=== PATIENT | male | born 1975 | race American Indian/Alaskan Native ===

== ENCOUNTER 2017-04-20 15:00 | Emergency (ER) | payer SELFPAY ==
[~2017-04-20] VITALS: Wt 81.8 kg
--- NOTE | 2017-04-20 18:41 | ERD ---
ER Documentation Chief Complaint Date/Time DATE: 04/20/17 TIME: 18:37 Chief Complaint rolled r. ankle and hit back of head on pole, no ko HPI This a 41-year-old male who presents to the emergency department today after being brought in by ambulance after rolling his ankle and hitting the back of his head on a fence. Patient states he was out in the yard doing some work when he was wearing crocs and stepped in a hole. States he sprained his ankle multiple times playing basketball. States that he felt the days but denies any loss of consciousness or nausea or vomiting. Denies any fevers or chills. ROS All systems reviewed and are negative except as per history of present illness. Allergies Allergies: Coded Allergies: No Known Allergy (Unverified , 04/20/17) PMhx/Soc Medical and Surgical Hx: pt denies Medical Hx History of Surgery: Yes (R ankle surgery.) Hx Alcohol Use: Yes Hx Substance Use: No Hx Tobacco Use: No Smoking Status: Never smoker Physical Exam Vitals Vital Signs Date Time Temp Pulse Resp B/P Pulse Ox O2 Delivery O2 Flow Rate FiO2 04/20/17 15:09 98.0 71 20 109/62 97 Physical Exam Const: Talkative, no acute distress Head: Atraumatic Eyes: Normal Conjunctiva. PERRLA. EOM intact ENT: Normal External Ears, Nose and Mouth. Neck: Full range of motion..~ No meningismus. Resp: Clear to auscultation bilaterally Cardio: Regular rate and rhythm, no murmurs Abd: Soft, non tender, non distended. Normal bowel sounds Skin: No petechiae or rashes Back: No midline or flank tenderness Ext: Right ankle with no obvious deformity. Mild effusion over lateral aspect. Mild tenderness palpation over ATF and PTF and CF ligaments. Decreased range of motion secondary to pain pulses 2+. Distal neurovascularly intact Nontender navicular. Nontender base of the fifth metatarsal. Neur: Awake and alert cranial nerves II through XII intact . Psych: Normal Mood and Affect Procedures/MDM This 41-year-old male who presents to the emergency department today for right ankle pain and hitting the back of his head. Given that there was some localized swelling over the patient's ankle I did offer to obtain images however he stated that he did not want them at this time. States that it is "just a sprain". States he has sprained his ankle multiple times. Patient symptoms at this time most consistent with sprain versus strain however I cannot rule out fracture without obtaining an x-ray. I have explained this to the patient. I also offered the patient crutches to help ambulate however he stated that he had some at home. States he had a brace at home. Patient did accept an Dex wrap. Patient had no loss of consciousness he has no nausea or vomiting. He has no focal neurologic deficits and therefore do not feel the patient requires a head CT scan at this time. Low suspicion for acute hemorrhage, mass, abscess, skull fracture. I did ask the patient why he came to the emergency room if he did not want treatment and patient indicated that he was told to come here by the paramedics. Patient indicated he had medication at home and declined any pain medication here in the emergency department. Patient indicated he works in [employer] and that he has a PPO and could follow-up with his primary care doctor. At this time the patient is stable for discharge and outpatient management. Patient should follow up with their PCP in the next 1-2 days. They may return to the emergency department sooner for any persistent or worsening of symptoms. Patient understood and agreed with the plan. Departure Diagnosis: Primary Impression: Ankle injury Encounter type: initial encounter Laterality: right Qualified Code: S99.911A - Ankle injury, right, initial encounter Additional Impression: Acute head injury Encounter type: initial encounter Qualified Code: S09.90XA - Acute head injury, initial encounter Condition: Fair Patient Instructions: What Are Ankle Sprains?, HEAD INJURY, No Wake-Up (Adult) Referrals: your PCP Additional Instructions: Call your primary care doctor TOMORROW for an appointment during the next 1-2 days.See the doctor sooner or return here if your condition worsens before your appointment time. Return for any worsening of symptoms, vomiting Take Tylenol Motrin for pain Use Dex wrap for swelling and compression and use your crutches at home to help him daily VIRGINIA COREA PA-C Apr 20, 2017 18:41
== END 2017-04-20 16:07 | disposition home or self-care (01) ==
LOC: FTE 15:00
DX: S99.911A Unspecified injury of right ankle, initial encounter (principal); S09.90XA Unspecified injury of head, initial encounter; W18.42XA Slipping, tripping and stumbling without falling due to stepping into hole or opening, initial encounter; Y92.096 Garden or yard of other non-institutional residence as the place of occurrence of the external cause
CPT/HCPCS: 99283